=== PATIENT | male | born 1985 | race Caucasian/White ===

== ENCOUNTER 2017-10-06 15:59 | Emergency (ER) | payer OTHER ==
[~2017-10-06] VITALS: Ht 182.8 cm; Wt 72.6 kg
[~2017-10-06 15:59] MED LIST: ALBUTEROL0.09 MG/A2 INH; AMOXICILLIN500 MG PO; ASCRIPTIN1 TA1; BACTRIM DS 8001 TA1 PO; BACTROBAN21 NS; CEPHALEXIN500 M1 PO; CIPRO500 MG PO; CLEOCIN HCL300 MG PO; DOXYCYCLINE100 M3 PO; IBU800 MG PO; KEFLEX500 MG PO; MOTRIN800 MG PO; NAPROSYN500 MG PO; NKHM; NORCO 325 MG-51 TAB PO; PERCOCET 325 MG1 TA2 PO; PREDNICOT20 MG PO; SEPTRA DS 800 M1 TAB PO; TESSALON PERLE200 MG PO; TRAMADOL HCL50 MG PO; ULTRAM50 MG PO; VENTOLIN,PR2 MG/5 ML PO; VICODIN 5/500 505 MG PO; VOLTAREN50 M1 PO; ZITHROMAX Z PA250 MG PO
[2017-10-06] MEDS ORDERED: IBUPROFEN600 MG PO (16:43)
[2017-10-06] MEDS ORDERED: ROBAXIN500 M1 PO (16:43)
== END 2017-10-06 17:36 | disposition home or self-care (01) ==
LOC: ED 15:59
DX: S33.5XXA Sprain of ligaments of lumbar spine, initial encounter (principal); Z91.030 Bee allergy status; Z88.6 Allergy status to analgesic agent; X58.XXXA Exposure to other specified factors, initial encounter; Y93.89 Activity, other specified; Y92.89 Other specified places as the place of occurrence of the external cause; Y99.9 Unspecified external cause status

== ENCOUNTER 2017-10-27 14:27 | Emergency (ER) | payer OTHER ==
[~2017-10-27] VITALS: Ht 182.8 cm; Wt 68.0 kg
[~2017-10-27 14:27] MED LIST changes: +IBUPROFEN600 MG PO; +ROBAXIN500 M1 PO
[2017-10-27 15:30] LABS: BASO % 0.5 % (0.0-1.0); EOS # 0.1 10*3/uL (0.0-0.4); EOS % 1.1 % (1.0-4.0); HEMATOCRIT 44.8 % (42.0-52.0); HEMOGLOBIN 16.2 g/dl (14.0-18.0); LYMPH % 25.9 % (27.0-41.0); MEAN CELL VOLUME 92.2 fl (80.0-94.0); MEAN CORPUSCULAR HGB 33.3 pg (27.0-31.0); MEAN CORPUSCULAR HGB CONC 36.2 g/dl (33.0-37.0); MEAN PLATELET VOLUME 9.2 fl (9.6-12.3); MONO # 0.7 10*3/uL (0.1-1.0); MONO % 9.2 % (3.0-9.0); NEUT # 4.8 10*3/uL (2.3-7.9); NEUT % 63.2 % (47.0-73.0); PLATELET COUNT AUTOMATED 144 10*3/uL (130-400); RED BLOOD COUNT 4.86 10*6/uL (4.50-5.90); RED CELL DISTRI WIDTH 11.8 % (0-14.5); WHITE BLOOD COUNT 7.5 10*3/uL (4.8-10.8)
[2017-10-27 15:54] LABS: ALBUMIN 4.4 gm/dl (3.1-4.5); ALKALINE PHOSPHATASE 99 U/L (45-117); BUN 9 mg/dl (7-24); CHLORIDE 104 mmol/L (98-107); CREATININE 0.99 mg/dL (0.70-1.30); POTASSIUM 4.3 mmol/L (3.5-5.1); SGOT/AST 30 IU/L (3-35); SGPT/ALT 38 U/L (12-78); SODIUM 137 mmol/L (136-145); TOTAL PROTEIN 8.3 gm/dL (6.4-8.2)
[2017-10-27 15:56] LABS: TROPONIN I < 0.015 ng/ml (<0.045)
[2017-10-27] MEDS ORDERED: DOXYCYCLINE100 M3 PO (17:02)
[2017-10-27] MEDS ORDERED: NAPROSYN500 MG PO (17:12)
[2017-10-27] MEDS ORDERED: Motrin,Rufen800 MG PO (17:12)
== END 2017-10-27 17:00 | disposition home or self-care (01) ==
LOC: ED 14:27
PROVIDERS: Nurse Practitioner Family
DX: L03.211 Cellulitis of face (principal); Z91.030 Bee allergy status; Z88.6 Allergy status to analgesic agent

== ENCOUNTER 2018-03-29 20:17 | Inpatient (IN) | payer OTHER ==
[~2018-03-29] VITALS: Ht 180.3 cm; Wt 67.6 kg
--- NOTE | ~2018-03-29 | EKG ---
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
--- NOTE | ~2018-03-29 | EKG ---
[place], [place] ELECTROCARDIOGRAM REPORT NAME: DANUTA RUIZ UNIT #: [id number] ROOM: [facility] DOCTOR: SAMMY DRAFT REPORT BIRTHDATE: [birth year] [facility] Test Date: 2018-03-30 Test Time: 09:09:36 Pat Name: DANUTA RUIZ Department: Room: 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
--- NOTE | ~2018-03-29 | CON ---
[place], [place] REPORT OF CONSULTATION NAME: DANUTA RUIZ UNIT #: [id number] ROOM: [facility] DOCTOR: NETTA, PHD [place] BIRTHDATE: [birth year] DOS: 03/31/2018 HISTORY OF PRESENT ILLNESS: The patient is a 32-year-old male referred by the hospitalist following agitated behavior with hallucinations, yesterday requiring a pink slip. He is presently in the ICU at [facility]. He lives with his girlfriend and 3 children and is unemployed. 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 He receives Suboxone to maintain his sobriety and has participated in services at [facility]. He denied alcohol use and smokes half a pack of cigarettes a day. He also endorsed sporadic marijuana use. PAST MEDICAL HISTORY: Abscess, ADHD, asthma, facial bones closed fracture. MEDICATIONS: Vitamin D, Nicotrol Inhaler, DuoNeb, Ativan. NEUROLOGIC EXAMINATION: The patient was awake, alert and oriented to person, place and time. He was sitting in bed, in no apparent distress. Eye contact and social skills were fair. The patient was cooperative. Mood was stable. He denied suicidal and homicidal ideation, plan and intent. He denied symptoms of anxiety, depression and irene. Affect was restricted in range. Speech was hyperverbal, expressive and receptive language, appeared to be within normal limits. Conversationally, thought process was goal directed. There was no evidence of hallucinations or delusions. Insight and judgment appeared to be fair. Cannabis abuse, tobacco abuse. RECOMMENDATIONS OR PLAN: The patient no longer appears to be responding to internal stimuli. He firmly denies suicidal and homicidal ideation, plan and intent. He does not appear to be a danger to himself or others at this time. He made be released from the 72-hour involuntary hold and follow up with [facility] upon discharge. Thank you very much for this consult. Zahra Lowe, PhD CM:CONSTR:REPORT OF CONSULTATION 1630 04/01/18 0718 interface
[2018-03-29 00:30] VITALS: BP 98/49
[~2018-03-29 20:17] MED LIST changes: +Motrin,Rufen800 MG PO
[2018-03-29 20:19] VITALS: BP 155/87
[2018-03-29] MEDS ORDERED: BUPREN/NALOX SUB 8-2 (20:37)
[2018-03-29 21:16] LABS: ALKALINE PHOSPHATASE 143 U/L (45-117); BUN 23 mg/dl (7-24); CHLORIDE 100 mmol/L (98-107); CREATININE 1.63 mg/dL (0.70-1.30); POTASSIUM 3.3 mmol/L (3.5-5.1); SGOT/AST 172 IU/L (3-35); SGPT/ALT 70 U/L (12-78); SODIUM 132 mmol/L (136-145); TOTAL PROTEIN 10.3 gm/dL (6.4-8.2)
[2018-03-29 21:19] LABS: BASO % 0.2 % (0.0-1.0); HEMATOCRIT 53.2 % (42.0-52.0); HEMOGLOBIN 19.1 g/dl (14.0-18.0); LYMPH # 3.4 10*3/uL (1.3-4.4); LYMPH % 16.3 % (27.0-41.0); MEAN CORPUSCULAR HGB 31.9 pg (27.0-31.0); MEAN CORPUSCULAR HGB CONC 35.9 g/dl (33.0-37.0); MEAN PLATELET VOLUME 10.2 fl (9.6-12.3); MONO # 1.7 10*3/uL (0.1-1.0); MONO % 8.4 % (3.0-9.0); NEUT # 15.3 10*3/uL (2.3-7.9); NEUT % 74.7 % (47.0-73.0); PLATELET COUNT AUTOMATED 266 10*3/uL (130-400); RED BLOOD COUNT 5.98 10*6/uL (4.50-5.90); RED CELL DISTRI WIDTH 12.6 % (0-14.5); WHITE BLOOD COUNT 20.5 10*3/uL (4.8-10.8)
[2018-03-29 21:20] LABS: ACETAMINOPHEN (TYLENOL) < 5.0 ug/ml (10-30); ETHYL ALCOHOL < 3.0 mg/dl (<3); TROPONIN I 0.335 ng/ml (<0.045)
[2018-03-29 21:23] LABS: PLATELET SUFFICIENCY NORMAL (NORMAL); TOTAL CELLS COUNTED 100 #CELLS
[2018-03-29 21:41] LABS: ACT PARTIAL THROMBO TIME 25.7 SECONDS (20.8-31.5)
[2018-03-29 22:14] LABS: BILIRUBIN 1+ (NEGATIVE); BLOOD 3+ (NEGATIVE); CLARITY SL CLOUDY (CLEAR); COLOR YELLOW (YELLOW); GLUCOSE NEGATIVE (NEGATIVE); KETONE NEGATIVE (NEGATIVE); LEUKO ESTERASE NEGATIVE (NEGATIVE); NITRITE NEGATIVE (NEGATIVE); SPECIFIC GRAVITY >= 1.030 (1.005-1.030); UROBILINOGEN 0.2 E.U./dl (0.2-1.0)
[2018-03-29 22:19] LABS: URINE AMPHETAMINES > 1000 (1000ng/ml); URINE BARBITURATES < 200 (200ng/ml); URINE BENZODIAZEPINES < 200 (200ng/ml); URINE CANNABINOIDS (THC) > 50 (50ng/ml); URINE COCAINE < 300 (300ng/ml); URINE METHADONE < 300 (300ng/ml); URINE OPIATES < 300 (300ng/ml)
[2018-03-29 22:20] LABS: URINE PHENCYCLIDINE < 25 (25ng/ml)
[2018-03-29 22:36] LABS: WBC 0-2 wbc/hpf (0-5)
[2018-03-29 23:08] VITALS: BP 113/72
[2018-03-30] VITALS (7 sets, daily range): BP systolic 91–146; BP diastolic 41–94
[2018-03-30 09:29] LABS: BASO % 0.3 % (0.0-1.0); EOS % 0.2 % (1.0-4.0); HEMATOCRIT 48.3 % (42.0-52.0); LYMPH # 2.6 10*3/uL (1.3-4.4); LYMPH % 24.8 % (27.0-41.0); MEAN CELL VOLUME 89.9 fl (80.0-94.0); MEAN CORPUSCULAR HGB 31.7 pg (27.0-31.0); MEAN CORPUSCULAR HGB CONC 35.2 g/dl (33.0-37.0); MEAN PLATELET VOLUME 10.2 fl (9.6-12.3); MONO # 1.2 10*3/uL (0.1-1.0); MONO % 11.2 % (3.0-9.0); NEUT # 6.7 10*3/uL (2.3-7.9); NEUT % 63.2 % (47.0-73.0); PLATELET COUNT AUTOMATED 190 10*3/uL (130-400); RED BLOOD COUNT 5.37 10*6/uL (4.50-5.90); RED CELL DISTRI WIDTH 12.5 % (0-14.5); WHITE BLOOD COUNT 10.6 10*3/uL (4.8-10.8)
[2018-03-30 09:33] LABS: ALBUMIN 3.9 gm/dl (3.1-4.5); ALKALINE PHOSPHATASE 106 U/L (45-117); BUN 16 mg/dl (7-24); CHLORIDE 113 mmol/L (98-107); CHOLESTEROL 159 mg/dL (<200); CREATININE 0.81 mg/dL (0.70-1.30); HDL CHOLESTEROL 43 mg/dl (40-60); LDL CHOLESTEROL 91 mg/dL (9-159); PHOSPHOROUS 1.8 mg/dL (2.5-4.9); POTASSIUM 3.9 mmol/L (3.5-5.1); SGOT/AST 114 IU/L (3-35); SGPT/ALT 55 U/L (12-78); SODIUM 140 mmol/L (136-145); TOTAL PROTEIN 7.8 gm/dL (6.4-8.2); TRIGLYCERIDES 124 mg/dl (<150); VLDL CHOLESTEROL 25 mg/dL (6-40)
[2018-03-30 09:39] LABS: FREE T4 1.66 ng/dl (0.76-1.46); THYROID STIM HORMONE (HS) 0.618 uIU/ml (0.358-4.75)
[2018-03-30 10:00] LABS: VITAMIN D, 25-HYDROXY 19.9 ng/mL (30-100)
[2018-03-30 10:15] LABS: CPK 2536 U/L (39-308)
[2018-03-30] MEDS ORDERED: SUBOXONE 2 MG-1 EACH SL (13:48)
[2018-03-31 05:51] LABS: ALBUMIN 3.7 gm/dl (3.1-4.5); ALKALINE PHOSPHATASE 95 U/L (45-117); BUN 15 mg/dl (7-24); CHLORIDE 113 mmol/L (98-107); CREATININE 0.71 mg/dL (0.70-1.30); PHOSPHOROUS 2.7 mg/dL (2.5-4.9); POTASSIUM 3.8 mmol/L (3.5-5.1); SGOT/AST 62 IU/L (3-35); SGPT/ALT 51 U/L (12-78); SODIUM 142 mmol/L (136-145); TOTAL PROTEIN 7.4 gm/dL (6.4-8.2)
[2018-03-31 05:53] LABS: CPK 879 U/L (39-308)
[2018-03-31 05:58] LABS: BASO # 0.1 10*3/uL (0.0-0.1); BASO % 0.6 % (0.0-1.0); EOS # 0.1 10*3/uL (0.0-0.4); EOS % 0.7 % (1.0-4.0); HEMATOCRIT 43.4 % (42.0-52.0); HEMOGLOBIN 15.1 g/dl (14.0-18.0); LYMPH # 2.8 10*3/uL (1.3-4.4); LYMPH % 31.4 % (27.0-41.0); MEAN CELL VOLUME 90.8 fl (80.0-94.0); MEAN CORPUSCULAR HGB 31.6 pg (27.0-31.0); MEAN CORPUSCULAR HGB CONC 34.8 g/dl (33.0-37.0); MEAN PLATELET VOLUME 10.4 fl (9.6-12.3); MONO % 10.5 % (3.0-9.0); NEUT # 5.1 10*3/uL (2.3-7.9); NEUT % 56.6 % (47.0-73.0); PLATELET COUNT AUTOMATED 189 10*3/uL (130-400); RED BLOOD COUNT 4.78 10*6/uL (4.50-5.90); RED CELL DISTRI WIDTH 12.5 % (0-14.5)
[2018-03-31 08:00] VITALS: BP 120/70
[2018-03-31 08:12] LABS: HEPATITIS B SURFACE AG Negative (Negative)
[2018-03-31 13:02] LABS: HEPATITIS C VIRUS ANTIBODY >11.0 s/co (0.0-0.9)
== END 2018-03-31 10:30 | disposition home or self-care (01) | DRG 70 ==
LOC: ED 20:17 → EDHOLD 23:53 → ICCU 23:53
PROVIDERS: Family Medicine; Internal Medicine; Student in an Organized Health Care Education/Training Program
DX: G93.41 Metabolic encephalopathy (principal); N17.0 Acute kidney failure with tubular necrosis; M62.82 Rhabdomyolysis; I21.A1 Myocardial infarction type 2; E87.1 Hypo-osmolality and hyponatremia; E87.2 Acidosis; R17 Unspecified jaundice; R44.3 Hallucinations, unspecified; R65.10 Systemic inflammatory response syndrome (SIRS) of non-infectious origin without acute organ dysfunction; R03.0 Elevated blood-pressure reading, without diagnosis of hypertension; E87.6 Hypokalemia; R73.9 Hyperglycemia, unspecified; R74.0 Nonspecific elevation of levels of transaminase and lactic acid dehydrogenase [LDH]; D64.9 Anemia, unspecified; E87.8 Other disorders of electrolyte and fluid balance, not elsewhere classified; E83.41 Hypermagnesemia; F17.210 Nicotine dependence, cigarettes, uncomplicated; F15.10 Other stimulant abuse, uncomplicated; R80.9 Proteinuria, unspecified; R31.9 Hematuria, unspecified; R82.2 Biliuria; J45.909 Unspecified asthma, uncomplicated; F12.90 Cannabis use, unspecified, uncomplicated; Z71.6 Tobacco abuse counseling; Z88.6 Allergy status to analgesic agent; Z91.030 Bee allergy status; Z82.5 Family history of asthma and other chronic lower respiratory diseases; Z80.9 Family history of malignant neoplasm, unspecified; Z82.49 Family history of ischemic heart disease and other diseases of the circulatory system

== ENCOUNTER 2022-12-20 19:52 | Emergency (ER) | payer OTHER ==
[~2022-12-20] VITALS: Ht 177.8 cm; Wt 81.6 kg
[~2022-12-20 19:52] MED LIST changes: +BUPREN/NALOX SUB 8-2; +SUBOXONE 2 MG-1 EACH SL
[2022-12-20] MEDS ORDERED: AMOX-CLAV 875-1 EACH PO (20:15)
== END 2022-12-20 21:30 | disposition home or self-care (01) ==
LOC: ED 19:52
DX: S81.851A Open bite, right lower leg, initial encounter (principal); F17.200 Nicotine dependence, unspecified, uncomplicated; Z91.030 Bee allergy status; Z88.8 Allergy status to other drugs, medicaments and biological substances; Z79.899 Other long term (current) drug therapy; W54.0XXA Bitten by dog, initial encounter; Y93.89 Activity, other specified; Y92.098 Other place in other non-institutional residence as the place of occurrence of the external cause; Y99.8 Other external cause status

== ENCOUNTER 2023-10-22 12:28 | Emergency (ER) | payer SELFPAY ==
[~2023-10-22 12:28] MED LIST changes: +AMOX-CLAV 875-1 EACH PO
== END 2023-10-22 13:37 | disposition left against medical advice (07) ==
LOC: ED 12:28
DX: T50.991A Poisoning by other drugs, medicaments and biological substances, accidental (unintentional), initial encounter (principal); J45.909 Unspecified asthma, uncomplicated; E78.00 Pure hypercholesterolemia, unspecified; E83.41 Hypermagnesemia; E87.6 Hypokalemia; E87.1 Hypo-osmolality and hyponatremia; D64.9 Anemia, unspecified; F12.90 Cannabis use, unspecified, uncomplicated; F17.200 Nicotine dependence, unspecified, uncomplicated; Z53.29 Procedure and treatment not carried out because of patient's decision for other reasons; Z91.030 Bee allergy status; Z88.6 Allergy status to analgesic agent; Y92.009 Unspecified place in unspecified non-institutional (private) residence as the place of occurrence of the external cause

== ENCOUNTER 2023-10-24 22:23 | Emergency (ER) | payer SELFPAY ==
[~2023-10-24] VITALS: Wt 77.1 kg
== END 2023-10-24 23:10 | disposition left against medical advice (07) ==
LOC: ED 22:23
DX: T65.891A Toxic effect of other specified substances, accidental (unintentional), initial encounter (principal); J45.909 Unspecified asthma, uncomplicated; F90.9 Attention-deficit hyperactivity disorder, unspecified type; F12.90 Cannabis use, unspecified, uncomplicated; F17.200 Nicotine dependence, unspecified, uncomplicated; Z91.030 Bee allergy status; Z88.6 Allergy status to analgesic agent; Z53.29 Procedure and treatment not carried out because of patient's decision for other reasons; Y92.89 Other specified places as the place of occurrence of the external cause